=== PATIENT | female | born 1990 | race African-American/Black ===

== ENCOUNTER 2018-05-05 10:19 | Emergency (ER) | payer SELFPAY ==
[~2018-05-05] VITALS: Ht 162.6 cm; Wt 68.0 kg
--- NOTE | 2018-05-05 10:23 | NUR ---
PT AMBULATED TO ER BED 02
[2018-05-05 10:26] VITALS: BP 140/75
--- NOTE | 2018-05-05 10:35 | NUR ---
27/F c/o burning on urination x 2 days. 9/10 pain. denies other complaints. no discharge noted. PATIENT STATES PAIN OF 9/10 AT THIS TIME. PATIENT POSITIONED FOR COMFORT; HOB ELEVATED; BEDRAILS UP X2; BED DOWN. ER MD MADE AWARE OF PT STATUS.
[2018-05-05] MEDS ORDERED: cefTRIAXone 1,000 MG in LIDOCAINE 1% ***ER ONLY *** 2.1 ML IM ONE (10:40)
[2018-05-05] MEDS ORDERED: LEVOFLOXACIN 500 MG TAB PO ONE (10:40)
[2018-05-05 10:51] LABS: BARBITURATE, URINE NEG. ng/ml (NEG <=200); BENZODIAZEPINE, URINE NEG. ng/mL (NEG <=200); CANNABINOID, URINE POS. ng/mL (NEG <=50); COCAINE, URINE NEG. ng/mL (NEG <=300); PHENCYCLIDINE SCREEN,URINE NEG. ng/mL (NEG <=25)
[2018-05-05] MEDS ORDERED: cefTRIAXone 1,000 MG VIAL ONE (10:51)
[2018-05-05] MEDS ORDERED: LIDOCAINE MPF 1% - 5 mL VIAL 5 ML ONE (10:52)
[2018-05-05 11:15] VITALS: BP 121/72
[2018-05-05 11:26] LABS: OPIATE, URINE NEG. ng/mL (NEG <=2000)
[2018-05-05 11:29] LABS: APPEARANCE,URINE HAZY (CLEAR); BILIRUBIN,URINE NEGATIVE (NEGATIVE); BLOOD, URINE NEGATIVE (NEGATIVE); COLOR,URINE YELLOW (YELLOW); LEUKOCYTE ESTERASE ,URINE TRACE (NEGATIVE); NITRITE, URINE NEGATIVE (NEGATIVE); UGLUCOSE NEGATIVE (NEGATIVE)
[2018-05-05 11:32] LABS: RBC,URINE NONE SEEN /HPF (0-5)
== END 2018-05-05 11:15 | disposition home or self-care (01) ==
LOC: MED 10:19
DX: N39.0 Urinary tract infection, site not specified (principal); Z20.2 Contact with and (suspected) exposure to infections with a predominantly sexual mode of transmission
CPT/HCPCS: 80305; 81001; 81025; 87086; 96372; 99283; J0696; J2001